=== PATIENT | female | born 1970 | race Caucasian/White ===

== ENCOUNTER → 2016-11-11 | Outpatient (CLI) | payer OTHER ==
[~2016-11-11] MED LIST: HYDR-3720 PO; METF500T PO; METO50TA2 PO; MTF500T PO; ONDA-42 SL; PHEN37.555 PO; SULF-222 PO; [UNRECOGNIZED DRUG - REMARK]
--- OUTSIDE RECORDS SUMMARY | 2016-11-11 10:49 | XMS REPORT | Continuity of Care Document ---
Author Author [facility] Organization [facility] Address Unknown Phone Unavailable Allergies Active Description Code Type Severity Reaction Onset Reported/Identified Relationship to Patient Clinical Status Yes No Known Drug Allergies [id number] Drug Allergy Unknown N/ A 07/01/2014 Medications Problems Date Dx Coded Attending Type Code Diagnosis Diagnosed By 07/01/2014 BRAD LUCIA TRIAL PARALEGAL Ot 599.0 URIN TRACT INFECTION NOS 07/01/2014 BRAD LUCIA TRIAL PARALEGAL Ot 786.50 CHEST PAIN NOS 07/01/2014 BRAD LUCIA TRIAL PARALEGAL Ot 786.52 PAINFUL RESPIRATION 08/19/2014 JESSICA HILL, FREDRICK T Ot 346.90 MIGRAINE UNSPECIFIED W/O INTRACT MGRN W/ 08/19/2014 JESSICA HILL, FREDRICK T Ot 787.01 NAUSEA WITH VOMITING 08/20/2014 JESSICA HILL, FREDRICK T Ot 346.90 08/20/2014 JESSICA HILL, FREDRICK T Ot 787.01 11/25/2014 TOBIAS MISHRA PRESSER FIRST Ot 250.00 11/25/2014 TAD HILL, MATT R Ot 250.00 11/25/2014 TAD HILL, MATT R Ot 401.9 03/02/2016 TOBIAS MISHRA PRESSER FIRST Ot 250.00 DIAB MARIAH WO COMPL, TYPE II OR UNSPEC TY 03/02/2016 TOBIAS MISHRA PRESSER FIRST Ot 250.00 DIAB MARIAH WO COMPL, TYPE II OR UNSPEC TY 03/02/2016 TAD HILL, MATT R Ot 250.00 DIAB MARIAH WO COMPL, TYPE II OR UNSPEC TY 03/02/2016 TAD HILL, MATT R Ot 401.9 HYPERTENSION NOS 03/02/2016 TAD HILL, MATT R Ot 250.00 DIAB MARIAH WO COMPL, TYPE II OR UNSPEC TY 03/03/2016 TAD HILL, MATT R Ot E11.9 TYPE 2 DIABETES MELLITUS WITHOUT COMPLIC 04/09/2016 MATT MISHRA MD R Ot E11.9 TYPE 2 DIABETES MELLITUS WITHOUT COMPLIC 06/07/2016 MATT MISHRA MD R Ot E11.9 TYPE 2 DIABETES MELLITUS WITHOUT COMPLIC 06/25/2016 MATT MISHRA MD Ot E11.9 TYPE 2 DIABETES MELLITUS WITHOUT COMPLIC Procedures Results Test Result Range Comprehensive metabolic panel - 06/04/16 10:04 Serum or plasma sodium measurement (moles/volume) 138 mmol/ L 135-145 Serum or plasma potassium measurement (moles/volume) 3.9 mmol/L 3.6-5.0 Serum or plasma chloride measurement (moles/volume) 109 mmol /L 98-107 Carbon dioxide 19 mmol/L 21-32 Serum or plasma anion gap determination (moles/volume) 10 mmol/L 5-14 Serum or plasma urea nitrogen measurement (mass/volume) 12 mg/dL 7-18 Serum or plasma creatinine measurement (mass/volume) 0.85 mg /dL 0.60-1.30 Serum or plasma urea nitrogen/creatinine mass ratio 14 NRG Serum or plasma creatinine measurement with calculation of estimated glomerular filtration rate > NRG Serum or plasma glucose measurement (mass/volume) 146 mg/dL 70-105 Serum or plasma calcium measurement (mass/volume) 9.5 mg/dL 8.5-10.1 Serum or plasma total bilirubin measurement (mass/volume) 0.7 mg/dL 0.1-1.0 Serum or plasma alkaline phosphatase measurement (enzymatic activity/volume) 73 U/L 40-136 Serum or plasma aspartate aminotransferase measurement (enzymatic activity/ volume) 13 U/L 5-34 Serum or plasma alanine aminotransferase measurement (enzymatic activity/volume ) 13 U/L 0-55 Serum or plasma protein measurement (mass/volume) 7.6 g/dL 6.4-8.2 Serum or plasma albumin measurement (mass/volume) 4.3 g/dL 3.2-4.5 Lipid 1996 panel - 06/04/16 10:04 Serum or plasma triglyceride measurement (mass/volume) 92 mg /dL <150 Serum or plasma cholesterol measurement (mass/volume) 149 mg /dL < 200 Serum or plasma cholesterol in HDL measurement (mass/volume) 43 mg/dL 40-60 Cholesterol in LDL [mass/volume] in serum or plasma by direct assay 99 mg/dL 1-129 Serum or plasma cholesterol in VLDL measurement (mass/volume) 18 mg/dL 5-40 Hemoglobin A1c - 06/04/16 10:04 Hemoglobin A1c 6.3 % 4.5-6.2 Encounters ACCT No. Visit Date/Time Discharge Status Pt. Type Provider Facility Loc./Unit Complaint [id number] 03/20/2015 11:06:00 2014 23:59:59 CLS Outpatient MATT MISHRA MD [facility] LAB [id number] 09/23/2014 08:12:00 2014 23:59:59 CLS Outpatient MTAT MISHRA MD [facility] LAB [id number] 08/19/2014 07:20:00 2013 09:58:00 DIS Emergency FREDRICK LOPEZ MD [facility] ER [id number] 07/01/2014 13:57:00 2013 16:22:00 DIS Emergency BRAD LUCIA APRN [facility] ER [id number] 06/28/2014 08:36:00 2013 23:59:59 CLS Outpatient TOBIAS MISHRA [facility] LAB [id number] 04/02/2014 08:02:00 2013 23:59:59 CLS Outpatient TOBIAS MISHRA [facility] LAB [id number] 06/04/2016 10:02:00 ACT Outpatient MATT MISHRA MD [facility] LAB DIABETES MELITIS W/O COMPLICATIONS [id number] 03/02/2016 10:50:00 ACT Outpatient MATT MISHRA MD [facility] LAB
[2016-11-11 11:25] LABS: ALANINE AMINOTRANSFERASE 16 U/L (0-55); ALBUMIN 4.2 G/DL (3.2-4.5); ANION GAP 7 MMOL/L (5-14); ASPARTATE AMINO TRANSFERASE 13 U/L (5-34); BILIRUBIN,TOTAL 0.7 MG/DL (0.1-1.0); BLOOD UREA NITROGEN 8 MG/DL (7-18); BUN/CREATININE RATIO 9; CALCIUM 9.4 MG/DL (8.5-10.1); CARBON DIOXIDE 24 MMOL/L (21-32); CHLORIDE 108 MMOL/L (98-107); CHOLESTEROL 167 MG/DL (< 200); CREATININE SERUM 0.92 MG/DL (0.60-1.30); DIRECT LDL 116 MG/DL (1-129); GFR ESTIMATED > 60; GLUCOSE 142 MG/DL (70-105); POTASSIUM 4.1 MMOL/L (3.6-5.0); SODIUM 139 MMOL/L (135-145); TOTAL PROTEIN 7.7 G/DL (6.4-8.2); TRIGLYCERIDES 95 MG/DL (<150); VLDL CHOLESTEROL 19 MG/DL (5-40)
== END ==
LOC: LAB 10:46
PROVIDERS: ATTEND Family Medicine
DX: E11.9 Type 2 diabetes mellitus without complications (principal)
CPT/HCPCS: 36415; 80053; 80061; 83036

== ENCOUNTER → 2022-04-02 | Outpatient (CLI) | payer OTHER ==
--- NOTE | 2022-04-02 14:26 | Diagnostic Imaging Report ---
PROCEDURE: MRI lumbar spine. TECHNIQUE: Multiplanar, multisequence MRI of the lumbar spine was performed without contrast. DATE: April 02, 2022. COMPARISON: None. INDICATION: 51-year-old female, low back pain and right leg pain. FINDINGS: There is a 5 mm grade 1 anterolisthesis of L3 on L4. There do appear to be bilateral L3 pars interarticularis defects. There is no evidence of a diffuse marrow infiltrating or replacing process. There is no identified focal concerning bone lesion. There is severe disc height loss at L3-L4 and L5-S1 with adjacent Modic endplate degenerative related changes. The visualized cord and conus medullaris is unremarkable and terminates at the L1-L2 level. There is severe atrophy of the right kidney. L1-L2: There is no disc bulge. The facet joints and ligamentum flavum are unremarkable. There is no foraminal narrowing. There is no spinal canal stenosis. L2-L3: There is no disc bulge. The facet joints and ligamentum flavum are unremarkable. There is no foraminal narrowing. There is no spinal canal stenosis. L3-L4: There is diffuse disc bulge eccentric to the right. There is moderate narrowing of the right lateral recess. The facet joints and ligamentum flavum are unremarkable. There is severe right foraminal narrowing. There is no high-grade spinal canal stenosis. L4-L5: There is no disc bulge. The facet joints and ligamentum flavum are unremarkable. There is no foraminal narrowing. There is no spinal canal stenosis. L5-S1: There is mild diffuse disc bulge. The facet joints and ligamentum flavum are unremarkable. There is very mild bilateral foraminal narrowing. There is no spinal canal stenosis. IMPRESSION: 1. Grade 1 anterolisthesis of L3 on L4 with suspected bilateral L3 pars interarticularis defects. 2. Multilevel degenerative changes of the lumbar spine with findings most notable at L3-L4. Dictated by: Dictated on workstation # [id number]
== END ==
LOC: RAD 12:43
PROVIDERS: ATTEND Nurse Practitioner Family
DX: M51.16 Intervertebral disc disorders with radiculopathy, lumbar region (principal); M43.16 Spondylolisthesis, lumbar region; M47.26 Other spondylosis with radiculopathy, lumbar region
CPT/HCPCS: 72148